=== PATIENT | female | born 1985 | race Two or more races ===

== ENCOUNTER 2017-06-23 11:37 | Emergency (ER) | payer BC ==
[~2017-06-23] VITALS: Ht 165.1 cm; Wt 63.5 kg
[2017-06-23 11:40] VITALS: BP 129/75
[2017-06-23] MEDS ORDERED: ONDANSETRON 4 MG TAB.RAPDIS SL ONE (12:30)
[2017-06-23] MEDS ORDERED: MECLIZINE HCL 12.5 MG TABLET PO ONE (12:30)
[2017-06-23] MEDS ORDERED: MECLIZINE HCL 25 MG TABLET ONE (12:44)
[2017-06-23] MEDS ORDERED: ONDANSETRON 4 MG TAB.RAPDIS ONE (12:45)
== END 2017-06-23 14:06 | disposition home or self-care (01) ==
LOC: ER 11:39
DX: S20.219A Contusion of unspecified front wall of thorax, initial encounter (principal); R42 Dizziness and giddiness; F17.210 Nicotine dependence, cigarettes, uncomplicated; Z72.0 Tobacco use; V89.2XXA Person injured in unspecified motor-vehicle accident, traffic, initial encounter; Y93.89 Activity, other specified; Y92.410 Unspecified street and highway as the place of occurrence of the external cause; Y99.8 Other external cause status
CPT/HCPCS: 71045; 93005; 99284; 99406; A4606; J8597; Q0162; Z7610

== ENCOUNTER 2020-05-11 15:05 | Emergency (ER) | payer BC ==
[~2020-05-11] VITALS: Ht 165.1 cm; Wt 54.4 kg
[2020-05-11 15:21] VITALS: BP 104/79
[2020-05-11] MEDS ORDERED: ONDANSETRON 4 MG TAB.RAPDIS ONE (15:38)
[2020-05-11] MEDS ORDERED: MECLIZINE HCL 25 MG TABLET ONE (15:38)
[2020-05-11] MEDS ORDERED: ONDANSETRON 4 MG TAB.RAPDIS SL ONE (16:00)
[2020-05-11] MEDS ORDERED: MECLIZINE HCL 12.5 MG TABLET PO ONE (16:00)
[2020-05-11 16:03] LABS: BASOPHILS % (AUTO) 0.3 % (0.0-2.0); EOSINOPHILS % (AUTO) 0.4 % (0.0-6.0); HEMATOCRIT 37 % (33-45); HEMOGLOBIN 12.2 g/dL (11.5-14.8); LYMPHOCYTES # (AUTO) 1.6 /CMM (0.8-4.8); LYMPHOCYTES % (AUTO) 27.8 % (20.0-44.0); MEAN CORPUSCULAR HGB CONC 33 g/dl (31.0-36.0); MEAN CORPUSCULAR VOLUME 90 fL (82-100); MONOCYTES # (AUTO) 0.5 /CMM (0.1-1.30); MONOCYTES % (AUTO) 7.9 % (2.0-12.0); NEUTROPHILS # (AUTO) 3.7 /CMM (1.8-8.9); NEUTROPHILS % (AUTO) 63.6 % (43.0-81.0); PLATELET COUNT (AUTO) 200 /CMM (150-450); RED BLOOD CELL COUNT(AUTO) 4.09 MIL/uL (4.0-5.2); WHITE BLOOD COUNT (AUTO) 5.8 K/uL (4.3-11.0)
[2020-05-11 16:15] LABS: CALCIUM, SERUM 9.2 mg/dL (8.5-10.1); CREATININE 0.7 mg/dL (0.6-1.3)
--- NOTE | 2020-05-11 16:48 | NUR ---
Patient discharged to home in stable condition. Written and verbal after care instructions given. Patient verbalizes understanding of instruction.
== END 2020-05-11 16:48 | disposition home or self-care (01) ==
LOC: ER 15:12
DX: R42 Dizziness and giddiness (principal); R11.0 Nausea
CPT/HCPCS: 36415; 80048; 85025; 93005; 99284; J8597; Q0162

== ENCOUNTER 2021-07-09 12:18 | Emergency (ER) | payer BC, MEDICAID ==
[~2021-07-09] VITALS: Ht 162.6 cm; Wt 57.4 kg
--- NOTE | 2021-07-09 12:29 | NUR ---
BIBS FOR C/O FEELING DIZZY SINCE TODAY AM AND HEMORRHOIDAL BLEEDING. THE PATIENT IS ALERT AND ORIENTED X4. DENIES PAIN. IN ROOM AIR AND DENIES SOB. RESPIRATION REGULAR AND UNLABORED. WILL CONTINUE TO MONITOR THE PATIENT.
--- NOTE | 2021-07-09 12:49 | NUR ---
IV ESTABLISHED R AC 20G, LABS COLLECTED AND DRAWN AT BEDSIDE, CONVERTED TO SALINE LOCK.
[2021-07-09] MEDS ORDERED: IV NS 0.9% 500 ML BAG IV ONE (13:00)
[2021-07-09 13:01] LABS: BASOPHILS % (AUTO) 0.8 % (0.0-2.0); EOSINOPHILS % (AUTO) 0.9 % (0.0-6.0); HEMATOCRIT 35 % (33-45); HEMOGLOBIN 11.6 g/dL (11.5-14.8); LYMPHOCYTES # (AUTO) 1.3 K/uL (0.8-4.8); LYMPHOCYTES % (AUTO) 24.5 % (20.0-44.0); MEAN CORPUSCULAR HGB CONC 33 g/dl (31.0-36.0); MEAN CORPUSCULAR VOLUME 86 fL (82-100); MONOCYTES # (AUTO) 0.4 K/uL (0.1-1.30); MONOCYTES % (AUTO) 7.3 % (2.0-12.0); NEUTROPHILS # (AUTO) 3.5 K/uL (1.8-8.9); NEUTROPHILS % (AUTO) 66.5 % (43.0-81.0); PLATELET COUNT (AUTO) 217 K/uL (150-450); RED BLOOD CELL COUNT(AUTO) 4.02 MIL/uL (4.0-5.2); WHITE BLOOD COUNT (AUTO) 5.2 K/uL (4.3-11.0)
[2021-07-09 15:10] LABS: CALCIUM, SERUM 9.2 mg/dL (8.5-10.1); CREATININE 0.6 mg/dL (0.6-1.3); POTASSIUM 3.5 mmol/L (3.5-5.1)
[2021-07-09] MEDS ORDERED: DOCU-141 PO (15:48)
[2021-07-09] MEDS ORDERED: POLY17PO4 PO (15:48)
[2021-07-09] MEDS ORDERED: PHEN28OI9 RC (15:48)
--- NOTE | 2021-07-09 16:05 | NUR ---
IV removed. Catheter intact and site benign. Pressure and 4x4 applied to site. No bleeding noted.Patient discharged to home in stable condition. Written and verbal after care instructions given. Patient verbalizes understanding of instruction.
[2021-07-09 16:40] VITALS: BP 120/70
== END 2021-07-09 16:42 | disposition home or self-care (01) ==
LOC: ER 12:22
DX: K64.9 Unspecified hemorrhoids (principal); R42 Dizziness and giddiness; F17.200 Nicotine dependence, unspecified, uncomplicated; Z79.899 Other long term (current) drug therapy
CPT/HCPCS: 36415; 80048; 85025; 85730; 93005; 96360; 99284; J7040